=== PATIENT | male | born 1980 | race Caucasian/White ===

== ENCOUNTER 2021-10-16 12:00 | Emergency (ER) | payer SELFPAY ==
[2021-10-16 12:31] VITALS: BP 166/89
[2021-10-16] MEDS ORDERED: LIDOCAINE (2%) 20 MG/1 ML VIAL 20 ML MDV INFILTRATI ONE (13:53)
--- NOTE | 2021-10-16 14:01 | Emergency Department Report ---
ED General Adult HPI - General Chief complaint: Abdominal Pain Stated complaint: UPPER RT QUADRANT PAIN Time Seen by Provider: 10/16/21 13:33 Source: EMS Mode of arrival: Stretcher Limitations: No Limitations - History of Present Illness Initial comments: This is a 41-year-old male presents emergency department initially with chief complaint of lower abdominal pain that started a few hours ago. He reports it was sudden. He states it has since completely resolved and he no longer needs to be seen about that he states while he was here he wanted to have his mouth checked. He reports he has had some swelling and pain to the roof of his mouth around a bad tooth. He denies any associated fever, chills, night sweats, headache, dizziness, blurry vision, nausea, vomit, diarrhea, chest pain, shortness of breath, weakness or any other associated symptoms. Severity scale (0 -10): 4 - Related Data Allergies Allergy/AdvReac Type Severity Reaction Status Date / Time No Known Allergies Allergy Verified 10/16/21 12:31 ED Review of Systems ROS: Stated complaint: UPPER RT QUADRANT PAIN Other details as noted in HPI Constitutional: denies: chills, fever Eyes: denies: eye pain, eye discharge, vision change ENT: as per HPI, dental pain. denies: ear pain, throat pain Respiratory: denies: cough, shortness of breath, wheezing Cardiovascular: denies: chest pain, palpitations Endocrine: no symptoms reported Gastrointestinal: denies: abdominal pain, nausea, diarrhea Genitourinary: denies: urgency, dysuria Musculoskeletal: denies: back pain, joint swelling, arthralgia Skin: denies: rash, lesions Neurological: denies: headache, weakness, paresthesias Psychiatric: denies: anxiety, depression Hematological/Lymphatic: denies: easy bleeding, easy bruising ED Past Medical Hx - Past Medical History Previous Medical History?: No ED Physical Exam - General Limitations: No Limitations General appearance: alert, in no apparent distress - Head Head exam: Present: atraumatic, normocephalic - Eye Eye exam: Present: normal appearance, PERRL, EOMI Pupils: Present: normal accommodation - ENT ENT exam: Present: normal exam, mucous membranes moist, other (Multiple dental caries, 1 cm abscess to the left upper roof of the mouth. ) - Neck Neck exam: Present: normal inspection. Absent: tenderness, meningismus - Respiratory Respiratory exam: Present: normal lung sounds bilaterally. Absent: respiratory distress, wheezes, rales, rhonchi, stridor - Cardiovascular Cardiovascular Exam: Present: regular rate, normal rhythm, normal heart sounds. Absent: systolic murmur, diastolic murmur, rubs, gallop - GI/Abdominal GI/Abdominal exam: Present: soft, normal bowel sounds, other (Negative Mcroberts's point tenderness, negative Carmona sign, no rebound or guarding, no CVA tenderness bilaterally.). Absent: distended, tenderness, guarding, rebound, rigid - Rectal Rectal exam: Present: deferred - Extremities Exam Extremities exam: Present: normal inspection - Back Exam Back exam: Present: normal inspection, full ROM. Absent: tenderness, CVA tenderness (R), CVA tenderness (L) - Neurological Exam Neurological exam: Present: alert, oriented X3, normal gait - Psychiatric Psychiatric exam: Present: normal affect, normal mood - Skin Skin exam: Present: warm, dry, intact, normal color. Absent: rash ED Course Vital Signs 10/16/21 12:31 Temperature 98.4 F Pulse Rate 74 Respiratory 16 Rate Blood Pressure 166/89 [Right] O2 Sat by Pulse 98 Oximetry ED Medical Decision Making - Medical Decision Making Patient initially presented with abdominal pain which had completely resolved. He had a dental abscess on exam and offered to drain it however the patient stated his right is here and he could not wait. He did decided to sign out AGAINST MEDICAL ADVICE per the nursing staff and did not get any discharge instructions. - Differential Diagnosis Dental abscess, dental infection, nephrolithiasis Critical care attestation.: If time is entered above; I have spent that time in minutes in the direct care of this critically ill patient, excluding procedure time. ED Disposition Clinical Impression: Dental abscess Disposition: LEFT AGAINST MEDICAL ADVICE Is pt being admited?: No Condition: Stable Instructions: Skin Abscess Forms: AMA Form Time of Disposition: 14:11
== END 2021-10-16 14:30 | disposition left against medical advice (07) ==
LOC: ED 12:00
DX: K04.7 Periapical abscess without sinus (principal)
CPT/HCPCS: 99283; J3490